=== PATIENT | female | born 1955 | race Caucasian/White ===

== ENCOUNTER 2017-12-02 11:04 | Emergency (ER) | payer BC, MEDICARE ==
[~2017-12-02] VITALS: Ht 154.9 cm; Wt 75.7 kg
[~2017-12-02 11:04] MED LIST: ATO40T PO; CHOL20007 PO; FERR-20 PO; GABA300C10 PO; INSUINJ18 SC; INSUINJ37 SC; MYCO500T PO; ONDA4TAB5 PO; PYRI60TA3 PO; TRAM50TA2 PO; VALS160T51 PO
[2017-12-02 11:30] VITALS: BP 143/66
== END 2017-12-02 14:21 | disposition home or self-care (01) ==
LOC: ER 11:04
DX: M70.51 Other bursitis of knee, right knee (principal); I10 Essential (primary) hypertension; E11.9 Type 2 diabetes mellitus without complications; E07.9 Disorder of thyroid, unspecified; Z88.8 Allergy status to other drugs, medicaments and biological substances; Z79.4 Long term (current) use of insulin; Z88.1 Allergy status to other antibiotic agents
CPT/HCPCS: 29505; 73562

== ENCOUNTER 2018-02-26 01:45 | Inpatient (IN) | payer BC ==
[~2018-02-26] VITALS: Ht 157.5 cm; Wt 71.2 kg
[2018-02-26] MEDS ORDERED: SODIUM CHLORIDE 0.9% 2,000 ML IV ONE (02:30)
[2018-02-26] MEDS ORDERED: InsuLIN REG 1unit/0.01ml Soln (100units/ml) IV ONE ×3 (02:30→09:15)
[2018-02-26 02:36] LABS: Basophils # (auto) 0.1 uL; Basophils % (auto) 0.5 % (0.0-2.0); Eosinophils # (auto) 0 uL; Lymphocytes # (auto) 0.9 uL; Lymphocytes % (auto) 5.5 % (10.0-50.0); Mean Corpuscular Hemoglobin 29.8 pg (28.0-32.0); Mean Corpuscular Hgb Conc. 31.8 g/dL (32.0-36.0); Mean Corpuscular Volume 93.7 fL (80.0-100.0); Monocytes # (auto) 1.1 uL; Monocytes % (auto) 6.2 % (0.0-12.0); Neutrophils # (auto) 15.1 uL; Neutrophils % (auto) 87.8 % (37.0-80.0); Platelet Count (auto) 420 10^3/uL (140-450); Red Blood Cells 4.69 10^6/uL (4.0-5.20); Red Cell Distribution Width 14.9 % (11.8-14.3); White Blood Cell 17.2 10^3/uL (4.4-10.8)
[2018-02-26 02:55] LABS: Albumin 4.5 g/dL (3.4-5.0); Calcium 9.9 mg/dL (8.5-10.1); Magnesium 1.9 mg/dL (1.6-2.6); Potassium 4.5 mmol/L (3.5-5.1)
[2018-02-26 02:59] LABS: BUN/Creatinine Ratio 15.3; Bilirubin, Total 0.6 mg/dL (0.2-1.0); Total Protein 8.6 g/dL (6.4-8.2)
[2018-02-26] MEDS ORDERED: POTASSIUM CHL 20 Meq TABLET PO ONE (04:00)
[2018-02-26 06:04] LABS: Urine Bacteria NONE SEEN /hpf (None Seen); Urine Blood Negative /uL (Negative); Urine Specific Gravity 1.027 (1.001-1.035); Urine WBC <1 /hpf (0 - 5)
[2018-02-26] MEDS ORDERED: ACETAMINOPHEN 500 MG TAB PO PRN (08:00)
[2018-02-26] MEDS ORDERED: HYDROcodone-ACET 5/325MG TAB PO PRN (08:00)
[2018-02-26] MEDS ORDERED: InsuLIN R (HUMAN) 100 UNITS in SODIUM CHL 0.9% 99 ML IV SCH (08:04)
[2018-02-26 08:10] LABS: Basophils # (auto) 0 uL; Basophils % (auto) 0.2 % (0.0-2.0); Eosinophils # (auto) 0 uL; Hematocrit 41.1 % (36.0-46.0); Hemoglobin 13.2 g/dL (12.2-16.2); Lymphocytes # (auto) 1.1 uL; Mean Corpuscular Hemoglobin 29.5 pg (28.0-32.0); Mean Corpuscular Hgb Conc. 32.1 g/dL (32.0-36.0); Mean Corpuscular Volume 91.8 fL (80.0-100.0); Monocytes # (auto) 1.7 uL; Monocytes % (auto) 9.3 % (0.0-12.0); Neutrophils # (auto) 15.6 uL; Neutrophils % (auto) 84.5 % (37.0-80.0); Platelet Count (auto) 364 10^3/uL (140-450); Red Blood Cells 4.48 10^6/uL (4.0-5.20); Red Cell Distribution Width 14.5 % (11.8-14.3); White Blood Cell 18.5 10^3/uL (4.4-10.8)
[2018-02-26] MEDS ORDERED: DEXTROSE (50%) 50ML SYRG IV PRN ×2 (08:15→09:15)
[2018-02-26] MEDS ORDERED: MORPHINE SULFATE 8mg/ml INJ SDV IV PRN (08:15)
[2018-02-26] MEDS: ONDANSETRON HCL 4 MG/2 ML VIAL IV PRN (08:24)
[2018-02-26 08:25] LABS: BUN/Creatinine Ratio 20.8; Potassium 4.7 mmol/L (3.5-5.1)
[2018-02-26] MEDS ORDERED: ACCU-CHEK COMFORT CURVE STRIP VI SCH (09:00)
[2018-02-26] MEDS ORDERED: INSULIN NPH Isophane (HUMAN) 1unit/0.01ml Susp(100units/ml) SC ONE (09:15)
[2018-02-26] MEDS ORDERED: SODIUM CHLORIDE 0.9% 1,000 ML IV ONE (10:00)
[2018-02-26] MEDS: VALSARTAN 80 MG TAB PO SCH (10:29)
[2018-02-26 11:34] LABS: Phosphorus 2.2 mg/dL (2.5-4.90)
[2018-02-26] MEDS: InsuLIN REG 1unit/0.01ml Soln (100units/ml) SC SCH ×3 (12:38→20:55)
[2018-02-26] MEDS: ACCU-CHEK COMFORT CURVE STRIP VI SCH ×3 (12:39→20:00)
[2018-02-26] MEDS ORDERED: INSULIN LANTUS (GLARGINE) 1 /0.01ml (100units/ml) SC ONE (13:30)
[2018-02-26] MEDS: SODIUM CHLORIDE 0.9% 1,000 ML IV SCH (13:30)
[2018-02-26] MEDS: GABAPENTIN 300 MG CAP PO SCH ×2 (14:00→22:02)
[2018-02-26] MEDS ORDERED: SODIUM CHLORIDE 0.9% 1,000 ML IV SCH (14:04)
[2018-02-26] MEDS: MYCOPHENOLATE 500 MG TAB PO SCH ×2 (14:33→22:04)
[2018-02-26 16:20] LABS: BUN/Creatinine Ratio 23.1; Calcium 8.8 mg/dL (8.5-10.1); Potassium 4.2 mmol/L (3.5-5.1)
[2018-02-26 17:11] VITALS: BP 133/65
[2018-02-26] MEDS: INSULIN NPH Isophane (HUMAN) 1unit/0.01ml Susp(100units/ml) SC SCH (18:00)
[2018-02-26] MEDS: PYRIDOSTIGMINE BROMIDE 60 MG TAB PO SCH ×2 (18:00→22:04)
[2018-02-26] MEDS ORDERED: PNEUMOCOCCAL VACC POLYS 25 MCG/0.5 ML VIAL IM ONE (18:00)
[2018-02-26 20:00] VITALS: BP 146/88
[2018-02-26 21:42] LABS: BUN/Creatinine Ratio 20.3; Calcium 8.5 mg/dL (8.5-10.1); Potassium 4.2 mmol/L (3.5-5.1)
[2018-02-26 22:00] VITALS: BP 146/70
[2018-02-26] MEDS: ATORVASTATIN 20 MG TAB PO SCH (22:02)
[2018-02-27] VITALS (7 sets, daily range): BP systolic 127–160; BP diastolic 62–89
[2018-02-27] MEDS: SODIUM CHLORIDE 0.9% 1,000 ML IV SCH (02:53)
[2018-02-27] MEDS: ACCU-CHEK COMFORT CURVE STRIP VI SCH ×5 (04:00→22:00)
[2018-02-27] MEDS: InsuLIN REG 1unit/0.01ml Soln (100units/ml) SC SCH ×4 (05:00→17:50)
[2018-02-27 06:03] LABS: Basophils # (auto) 0.1 uL; Basophils % (auto) 0.7 % (0.0-2.0); Eosinophils # (auto) 0.1 uL; Eosinophils % (auto) 0.7 % (0.0-7.0); Hematocrit 37.3 % (36.0-46.0); Hemoglobin 12.4 g/dL (12.2-16.2); Lymphocytes # (auto) 1.6 uL; Lymphocytes % (auto) 15.2 % (10.0-50.0); Mean Corpuscular Hemoglobin 30.4 pg (28.0-32.0); Mean Corpuscular Hgb Conc. 33.1 g/dL (32.0-36.0); Mean Corpuscular Volume 91.7 fL (80.0-100.0); Monocytes # (auto) 1.1 uL; Neutrophils # (auto) 7.9 uL; Neutrophils % (auto) 73.4 % (37.0-80.0); Platelet Count (auto) 261 10^3/uL (140-450); Red Blood Cells 4.06 10^6/uL (4.0-5.20); Red Cell Distribution Width 14.6 % (11.8-14.3); White Blood Cell 10.8 10^3/uL (4.4-10.8)
[2018-02-27 06:27] LABS: Albumin 3.4 g/dL (3.4-5.0); Bilirubin, Total 0.5 mg/dL (0.2-1.0); Calcium 8.7 mg/dL (8.5-10.1); Phosphorus 1.9 mg/dL (2.5-4.90); Total Protein 6.3 g/dL (6.4-8.2)
[2018-02-27] MEDS: PYRIDOSTIGMINE BROMIDE 60 MG TAB PO SCH ×4 (06:45→22:34)
[2018-02-27] MEDS: GABAPENTIN 300 MG CAP PO SCH ×3 (06:45→22:41)
[2018-02-27] MEDS: INSULIN NPH Isophane (HUMAN) 1unit/0.01ml Susp(100units/ml) SC SCH (06:46)
[2018-02-27] MEDS ORDERED: DEXTROSE (50%) 50ML SYRG IV PRN (09:15)
[2018-02-27] MEDS: ONDANSETRON HCL 4 MG/2 ML VIAL IV PRN ×3 (09:28→20:26)
[2018-02-27] MEDS: VALSARTAN 80 MG TAB PO SCH (09:29)
[2018-02-27] MEDS: PANTOPRAZOLE 40 MG TAB PO SCH (09:33)
[2018-02-27] MEDS: MYCOPHENOLATE 500 MG TAB PO SCH ×2 (10:14→22:35)
[2018-02-27] MEDS: INSULIN LANTUS (GLARGINE) 1 /0.01ml (100units/ml) SC SCH (12:14)
[2018-02-27] MEDS: NEUTRA-PHOS TABLET PO SCH ×2 (12:14→17:50)
[2018-02-27] MEDS ORDERED: InsuLIN REG 1unit/0.01ml Soln (100units/ml) SC SCH (22:00)
[2018-02-27] MEDS: ATORVASTATIN 20 MG TAB PO SCH (22:41)
[2018-02-28 05:00] VITALS: BP 136/63
[2018-02-28] MEDS: PYRIDOSTIGMINE BROMIDE 60 MG TAB PO SCH ×2 (06:59→13:17)
[2018-02-28] MEDS: GABAPENTIN 300 MG CAP PO SCH (06:59)
[2018-02-28] MEDS: InsuLIN REG 1unit/0.01ml Soln (100units/ml) SC SCH ×2 (07:00→13:16)
[2018-02-28] MEDS: ACCU-CHEK COMFORT CURVE STRIP VI SCH ×2 (07:00→13:16)
[2018-02-28 09:00] VITALS: BP 143/84
[2018-02-28] MEDS: NEUTRA-PHOS TABLET PO SCH ×2 (09:35→13:17)
[2018-02-28] MEDS: PANTOPRAZOLE 40 MG TAB PO SCH (09:37)
[2018-02-28] MEDS: VALSARTAN 80 MG TAB PO SCH (09:50)
[2018-02-28] MEDS: MYCOPHENOLATE 500 MG TAB PO SCH (09:50)
[2018-02-28] MEDS: INSULIN LANTUS (GLARGINE) 1 /0.01ml (100units/ml) SC SCH (10:31)
[2018-02-28 13:00] VITALS: BP 149/89
== END 2018-02-28 13:30 | disposition home or self-care (01) | DRG 637 ==
LOC: ER 01:45 → OVERFLOW 01:46 → TELE-CENTR 15:00 → CENTRAL 02-27 11:00
PROVIDERS: ADMIT Nurse Practitioner Family; ATTEND Internal Medicine
DX: E11.10 Type 2 diabetes mellitus with ketoacidosis without coma (principal); N17.0 Acute kidney failure with tubular necrosis; K52.9 Noninfective gastroenteritis and colitis, unspecified; G70.00 Myasthenia gravis without (acute) exacerbation; E83.39 Other disorders of phosphorus metabolism; E86.0 Dehydration; I10 Essential (primary) hypertension; E78.5 Hyperlipidemia, unspecified; Z79.899 Other long term (current) drug therapy; Z79.4 Long term (current) use of insulin; Z88.1 Allergy status to other antibiotic agents; Z88.8 Allergy status to other drugs, medicaments and biological substances
CPT/HCPCS: 36415; 36600; 71045; 80048; 80053; 81001; 82010; 82805; 82962; 83036; 83735; 84100; 84484; 85025; 96361; 96372; 96374; 96375; 96376; J1815; J2405; J7517

== ENCOUNTER → 2018-06-08 | Emergency (ER) | payer BC | END | disposition left against medical advice (07) | LOC: ER 19:35 | DX: Z76.0 Encounter for issue of repeat prescription (principal); Z53.21 Procedure and treatment not carried out due to patient leaving prior to being seen by health care provider ==

== ENCOUNTER 2018-06-22 14:40 | Emergency (ER) | payer BC ==
[~2018-06-22] VITALS: Ht 157.5 cm; Wt 70.3 kg
[2018-06-22 15:09] VITALS: BP 157/104
== END 2018-06-22 17:22 | disposition home or self-care (01) ==
LOC: ER 14:40
DX: E78.5 Hyperlipidemia, unspecified (principal); E11.9 Type 2 diabetes mellitus without complications; I10 Essential (primary) hypertension; Z76.0 Encounter for issue of repeat prescription; E07.9 Disorder of thyroid, unspecified; Z88.1 Allergy status to other antibiotic agents; Z88.8 Allergy status to other drugs, medicaments and biological substances; Z79.899 Other long term (current) drug therapy; Z79.4 Long term (current) use of insulin

== ENCOUNTER 2021-07-05 03:27 | Inpatient (IN) | payer BC, OTHER ==
[~2021-07-05] VITALS: Ht 152.4 cm; Wt 71.1 kg
[~2021-07-05 03:27] MED LIST changes: +ONDA-144 PO; -ONDA4TAB5 PO; +VALS160T4 PO; -VALS160T51 PO
[2021-07-05 03:57] LABS: Basophils # (auto) 0.2 10 ^3/uL (0-0.2); Basophils % (auto) 0.8 % (0.0-2.0); Eosinophils # (auto) 0 10 ^3/uL (0-0.8); Monocytes # (auto) 0.4 10 ^3/uL (0-1.3); Monocytes % (auto) 2.3 % (0.0-12.0)
[2021-07-05 04:01] LABS: Hematocrit 46.2 % (36.0-46.0); Hemoglobin 14.8 g/dL (12.2-16.2); Lymphocytes # (auto) 0.8 10 ^3/uL (0.4-5.4); Lymphocytes % (auto) 4.6 % (10.0-50.0); Mean Corpuscular Hemoglobin 30.2 pg (28.0-32.0); Mean Corpuscular Hgb Conc. 32.1 g/dL (32.0-36.0); Mean Corpuscular Volume 94.3 fL (80.0-100.0); Neutrophils # (auto) 16.7 10 ^3/uL (1.6-8.6); Neutrophils % (auto) 92.3 % (37.0-80.0); Nucleated Red Blood Cells % 0.1 %; White Blood Cell 18.1 10^3/uL (4.4-10.8)
[2021-07-05 04:15] LABS: Albumin 4.3 g/dL (3.4-5.0); Calcium 9.5 mg/dL (8.5-10.1); Potassium 4.2 mmol/L (3.5-5.1)
[2021-07-05 04:19] LABS: BUN/Creatinine Ratio 16.6
[2021-07-05 04:24] LABS: Bilirubin, Total 0.5 mg/dL (0.2-1.0)
[2021-07-05] MEDS ORDERED: SODIUM CHLORIDE 0.9% 1,000 ML IV ONE ×2 (04:30→04:45)
[2021-07-05] MEDS ORDERED: DEXTROSE (50%) 50ML SYRG IV PRN (04:45)
[2021-07-05] MEDS ORDERED: INSULIN LANTUS (GLARGINE) 1 /0.01ml (100units/ml) SC ONE ×3 (04:45→14:30)
[2021-07-05] MEDS ORDERED: InsuLIN REG 1unit/0.01ml Soln (100units/ml) ONE (04:46)
[2021-07-05] MEDS: InsuLIN R (HUMAN) 100 UNITS in SODIUM CHL 0.9% 99 ML IV SCH ×2 (04:54→06:00)
[2021-07-05 05:46] LABS: Urine WBC None Seen /hpf (0 - 5)
[2021-07-05] MEDS: ACCU-CHEK COMFORT CURVE STRIP VI SCH ×6 (06:00→13:41)
[2021-07-05] MEDS ORDERED: NITROGLYCERIN 0.4 MG SL TAB SL PRN (06:15)
[2021-07-05] MEDS ORDERED: MORPHINE SULFATE INJECTION 2 MG/ML SYRG IV PRN (06:15)
[2021-07-05] MEDS ORDERED: ONDANSETRON HCL 4 MG/2 ML VIAL IV PRN (06:15)
[2021-07-05 06:23] LABS: Urine Bacteria NONE SEEN /hpf (None Seen); Urine Blood Negative /uL (Negative); Urine Specific Gravity 1.022 (1.001-1.035)
[2021-07-05 06:48] LABS: Basophils # (auto) 0.1 10 ^3/uL (0-0.2); Basophils % (auto) 0.4 % (0.0-2.0); Eosinophils # (auto) 0 10 ^3/uL (0-0.8); Hematocrit 44.2 % (36.0-46.0); Hemoglobin 14.5 g/dL (12.2-16.2); Lymphocytes # (auto) 0.7 10 ^3/uL (0.4-5.4); Mean Corpuscular Hemoglobin 30.5 pg (28.0-32.0); Mean Corpuscular Hgb Conc. 32.9 g/dL (32.0-36.0); Mean Corpuscular Volume 92.9 fL (80.0-100.0); Monocytes # (auto) 0.6 10 ^3/uL (0-1.3); Monocytes % (auto) 3.5 % (0.0-12.0); Neutrophils # (auto) 16.3 10 ^3/uL (1.6-8.6); Neutrophils % (auto) 92.1 % (37.0-80.0); Nucleated Red Blood Cells % 0.1 %; Red Blood Cells 4.76 10^6/uL (4.0-5.20); Red Cell Distribution Width 13.7 % (11.8-14.3); White Blood Cell 17.7 10^3/uL (4.4-10.8)
[2021-07-05 07:23] LABS: Alanine Aminotransferase 22 U/L (13-56); Albumin 3.9 g/dL (3.4-5.0); Anion Gap 20 (5-15); Aspartate Aminotransferase 21 U/L (15-37); BUN/Creatinine Ratio 19.2; Blood Urea Nitrogen 23 mg/dL (7-18); Carbon Dioxide 10 mmol/L (21-32); Chloride 105 mmol/L (98-107); GFR African American 58 mL/min; GFR Non-African American 48 mL/min; Sodium 135 mmol/L (136-145)
[2021-07-05 07:26] LABS: Alkaline Phosphatase 138 U/L (45-117); Bilirubin, Total 0.5 mg/dL (0.2-1.0); Total Protein 8.4 g/dL (6.4-8.2)
[2021-07-05 07:31] LABS: Glucose 422 mg/dL (74-106)
[2021-07-05] MEDS ORDERED: INSULIN LANTUS (GLARGINE) 1 /0.01ml (100units/ml) SC SCH (10:00)
[2021-07-05] MEDS ORDERED: dilTIAZem 25 MG/5 ML VIAL IV PRN (11:00)
[2021-07-05] MEDS: CIPROFLOXACIN 400MG/200ML 200 ML IV SCH ×2 (11:08→21:41)
[2021-07-05] MEDS: VALSARTAN 80 MG TAB PO SCH (11:09)
[2021-07-05] MEDS: MYCOPHENOLATE 500 MG TAB PO SCH ×2 (11:20→21:42)
[2021-07-05] MEDS: PYRIDOSTIGMINE BROMIDE 60 MG TAB PO SCH ×3 (12:35→21:42)
[2021-07-05 13:42] LABS: BUN/Creatinine Ratio 24.4; Calcium 8.8 mg/dL (8.5-10.1); Potassium 3.8 mmol/L (3.5-5.1)
[2021-07-05] MEDS ORDERED: SODIUM BICARBONATE 8.4 % INJ 50ML VIAL IV ONE (14:30)
[2021-07-05] MEDS: GABAPENTIN 300 MG CAP PO SCH ×2 (15:11→21:42)
[2021-07-05] MEDS: LACTATED RINGER'S 1,000 ML IV SCH (15:11)
[2021-07-05] MEDS: traMADol HCL 50 MG TAB PO SCH ×2 (15:11→21:45)
[2021-07-05 19:49] LABS: BUN/Creatinine Ratio 23.5; Calcium 8.7 mg/dL (8.5-10.1); Potassium 3.7 mmol/L (3.5-5.1)
[2021-07-05] MEDS ORDERED: ATORVASTATIN 20 MG TAB PO SCH (22:00)
[2021-07-06] VITALS (8 sets, daily range): BP systolic 143–159; BP diastolic 63–87
[2021-07-06] MEDS: LACTATED RINGER'S 1,000 ML IV SCH ×2 (00:30→10:02)
[2021-07-06 05:54] LABS: Basophils # (auto) 0 10 ^3/uL (0-0.2); Basophils % (auto) 0.3 % (0.0-2.0); Eosinophils # (auto) 0.1 10 ^3/uL (0-0.8); Eosinophils % (auto) 0.9 % (0.0-7.0); Hematocrit 38.6 % (36.0-46.0); Hemoglobin 12.8 g/dL (12.2-16.2); Lymphocytes # (auto) 1.9 10 ^3/uL (0.4-5.4); Lymphocytes % (auto) 12.7 % (10.0-50.0); Mean Corpuscular Hemoglobin 30.5 pg (28.0-32.0); Mean Corpuscular Hgb Conc. 33.2 g/dL (32.0-36.0); Mean Corpuscular Volume 91.8 fL (80.0-100.0); Monocytes % (auto) 6.6 % (0.0-12.0); Neutrophils # (auto) 12.1 10 ^3/uL (1.6-8.6); Neutrophils % (auto) 79.5 % (37.0-80.0); Nucleated Red Blood Cells % 0.1 %; Red Cell Distribution Width 14.2 % (11.8-14.3); White Blood Cell 15.2 10^3/uL (4.4-10.8)
[2021-07-06] MEDS: PYRIDOSTIGMINE BROMIDE 60 MG TAB PO SCH ×3 (06:00→17:16)
[2021-07-06 06:16] LABS: Chloride 103 mmol/L (98-107); Potassium 3.7 mmol/L (3.5-5.1); Sodium 133 mmol/L (136-145)
[2021-07-06 06:27] LABS: Anion Gap 13 (5-15); BUN/Creatinine Ratio 19.5; Blood Urea Nitrogen 15 mg/dL (7-18); Calcium 8.7 mg/dL (8.5-10.1); Carbon Dioxide 17 mmol/L (21-32); GFR African American 96 mL/min; GFR Non-African American 80 mL/min; Glucose 236 mg/dL (74-106)
[2021-07-06] MEDS ORDERED: DEXTROSE (50%) 50ML SYRG IV PRN (06:45)
[2021-07-06] MEDS: GABAPENTIN 300 MG CAP PO SCH ×2 (06:45→12:10)
[2021-07-06] MEDS: traMADol HCL 50 MG TAB PO SCH ×2 (06:45→12:11)
[2021-07-06] MEDS: InsuLIN REG 1unit/0.01ml Soln (100units/ml) SC SCH ×3 (07:14→17:00)
[2021-07-06] MEDS: ACCU-CHEK COMFORT CURVE STRIP VI SCH ×3 (07:15→17:00)
[2021-07-06] MEDS ORDERED: LACTATED RINGER'S 1,000 ML IV ONE (08:15)
[2021-07-06] MEDS ORDERED: SODIUM BICARBONATE 8.4 % INJ 50ML VIAL IV ONE (09:00)
[2021-07-06] MEDS: VALSARTAN 80 MG TAB PO SCH (09:58)
[2021-07-06] MEDS: MYCOPHENOLATE 500 MG TAB PO SCH (09:59)
[2021-07-06] MEDS: CIPROFLOXACIN 400MG/200ML 200 ML IV SCH (09:59)
[2021-07-06] MEDS ORDERED: amLODIPine BESYLATE 5 MG TAB PO SCH (10:00)
[2021-07-06] MEDS ORDERED: INSULIN LANTUS (GLARGINE) 1 /0.01ml (100units/ml) SC SCH ×3 (10:00)
== END 2021-07-06 17:25 | disposition home or self-care (01) | DRG 638 ==
LOC: ER 03:27 → TELE 06:04 → OBSVTOIN 06:04 → INTOOBSV 06:04 → CENTRAL 20:30
PROVIDERS: ADMIT Internal Medicine; ATTEND Internal Medicine
DX: E11.10 Type 2 diabetes mellitus with ketoacidosis without coma (principal); N17.9 Acute kidney failure, unspecified; I10 Essential (primary) hypertension; G70.00 Myasthenia gravis without (acute) exacerbation; D72.829 Elevated white blood cell count, unspecified; Z20.822 Contact with and (suspected) exposure to COVID-19; E78.5 Hyperlipidemia, unspecified; Z79.899 Other long term (current) drug therapy; Z81.1 Family history of alcohol abuse and dependence; Z88.8 Allergy status to other drugs, medicaments and biological substances
CPT/HCPCS: 36415; 71045; 76705; 80048; 80053; 81001; 82010; 82962; 83036; 83690; 84484; 85025; 87081; 87426; 96361; 96372; 96374; G0378; J1815; J2405; J7517

== ENCOUNTER 2022-11-20 06:21 | Inpatient (IN) | payer OTHER ==
[~2022-11-20] VITALS: Ht 157.5 cm; Wt 86.5 kg
[2022-11-20] VITALS (33 sets, daily range): BP systolic 75–143; BP diastolic 37–83
[2022-11-20] MEDS ORDERED: MAGNESIUM SULFATE 1GM/100ML 200 ML IV ONE (06:29)
[2022-11-20] MEDS ORDERED: EPINEPHrine HCL 250 ML IV ONE (06:35)
[2022-11-20] MEDS ORDERED: DOPamine 1600MCG/ML D5W 0 ML IV ONE (06:41)
[2022-11-20] MEDS: DOPamine 1600MCG/ML D5W 250 ML IV SCH (06:44)
[2022-11-20] MEDS: EPINEPHrine HCL 250 ML IV SCH (06:48)
[2022-11-20] MEDS ORDERED: IOHEXOL 300 MG/ML 100ML BOTTLE IJ ONE (07:42)
[2022-11-20] MEDS ORDERED: NOREPINEPHRINE 8 MG/250ML KIT 250 ML IV ONE (07:52)
[2022-11-20 08:02] LABS: Albumin 2.9 g/dL (3.4-5.0); BUN/Creatinine Ratio 11.8; Potassium 3.7 mmol/L (3.5-5.1)
[2022-11-20 08:13] LABS: Bilirubin, Total 0.2 mg/dL (0.2-1.0); Total Protein 5.4 g/dL (6.4-8.2)
[2022-11-20 08:15] LABS: Lactic Acid w/Reflex 18.3 mmol/L (0.4-2.0)
[2022-11-20] MEDS ORDERED: HYDROCORTISONE SOD SUCC 100 MG/2ML INJ VIAL IV ONE ×2 (08:15→09:00)
[2022-11-20] MEDS: NOREPINEPHRINE 8 MG/250ML KIT 250 ML IV SCH (08:15)
[2022-11-20 08:20] LABS: Calcium 14.2 mg/dL (8.5-10.1)
[2022-11-20 08:22] LABS: Hemoglobin 9.4 g/dL (12.2-16.2); White Blood Cell 6.3 10^3/uL (4.4-10.8)
[2022-11-20 08:24] LABS: Hematocrit 34.2 % (36.0-46.0); Mean Corpuscular Hemoglobin 25.6 pg (28.0-32.0); Mean Corpuscular Hgb Conc. 27.5 g/dL (32.0-36.0); Red Blood Cells 3.68 10^6/uL (4.0-5.20); Red Cell Distribution Width 19.8 % (11.8-14.3)
[2022-11-20] MEDS ORDERED: SODIUM BICARBONATE 8.4 % INJ 50ML VIAL IV ONE ×2 (08:30→09:00)
[2022-11-20 08:31] LABS: Basophils % (manual) 0 (0.0-2.0); Blast Cells 0; Metamyelocytes % 0; Promyelocytes % 0; Reactive Lymphocytes 0
[2022-11-20 08:55] LABS: Band Neutrophils % (manual) 5; Eosinophils % (manual) 2 (0-7); Lymphocytes % (manual) 69 (10.0-50.0); Monocytes % (manual) 2 (0-12); Myelocytes % 1
[2022-11-20] MEDS ORDERED: SODIUM CHLORIDE 0.9% 1,000 ML IV ONE (09:00)
[2022-11-20] MEDS ORDERED: MIDAZOLAM DRIP 50 mg/50mL 50 ML IV ONE (10:17)
[2022-11-20] MEDS ORDERED: DOPamine 1600MCG/ML D5W 250 ML IV ONE (10:39)
[2022-11-20] MEDS: MIDAZOLAM DRIP 50 mg/50mL 50 ML IV SCH ×3 (10:40→23:50)
[2022-11-20] MEDS ORDERED: MORPHINE SULFATE INJ 2 MG/ml SYRG IV PRN ×2 (15:00)
[2022-11-20] MEDS ORDERED: DEXTROSE (50%) 50ML SYRG IV PRN (15:45)
[2022-11-20] MEDS: SODIUM CHLORIDE 0.9% 1,000 ML IV SCH ×2 (16:01→23:20)
[2022-11-20] MEDS: ACCU-CHEK COMFORT CURVE STRIP VI SCH (18:22)
[2022-11-20] MEDS: InsuLIN REG 1unit/0.01ml Soln (100units/ml) SC SCH (18:30)
[2022-11-20] MEDS ORDERED: INSULIN LANTUS (GLARGINE) 1 /0.01ml (100units/ml) SC ONE (18:30)
[2022-11-20 21:30] LABS: BUN/Creatinine Ratio 15.3; Calcium 9.3 mg/dL (8.5-10.1); Magnesium 2.3 mg/dL (1.6-2.6)
[2022-11-20] MEDS ORDERED: MYCOPHENOLATE 500 MG TAB PO SCH (22:00)
[2022-11-20] MEDS ORDERED: MYCOPHENOLATE 1000mg/5ml ORALsusp 200mg/ml GT ONE (22:00)
[2022-11-20 22:10] LABS: Potassium 2.8 mmol/L (3.5-5.1)
[2022-11-20] MEDS: PROPOFOL 100 ML IV SCH (22:15)
[2022-11-20] MEDS: POTASSIUM CHL 20MEQ/100ML 100 ML IV SCH (23:51)
[2022-11-21] VITALS (79 sets, daily range): BP systolic 9–152; BP diastolic 36–78
[2022-11-21] MEDS: ACCU-CHEK COMFORT CURVE STRIP VI SCH ×5 (00:25→23:35)
[2022-11-21] MEDS: InsuLIN REG 1unit/0.01ml Soln (100units/ml) SC SCH ×5 (00:27→23:35)
[2022-11-21] MEDS: POTASSIUM CHL 20MEQ/100ML 100 ML IV SCH ×3 (01:57→06:00)
[2022-11-21] MEDS: MIDAZOLAM DRIP 50 mg/50mL 50 ML IV SCH ×6 (03:19→21:53)
[2022-11-21 03:46] LABS: Basophils # (auto) 0.1 10 ^3/uL (0-0.2); Eosinophils # (auto) 0 10 ^3/uL (0-0.8); Eosinophils % (auto) 0.1 % (0.0-7.0); Red Cell Distribution Width 18.9 % (11.8-14.3); White Blood Cell 13.9 10^3/uL (4.4-10.8)
[2022-11-21 03:47] LABS: Basophils % (auto) 0.4 % (0.0-2.0); Hematocrit 35.1 % (36.0-46.0); Lymphocytes # (auto) 0.5 10 ^3/uL (0.4-5.4); Lymphocytes % (auto) 3.4 % (10.0-50.0); Mean Corpuscular Hemoglobin 25.1 pg (28.0-32.0); Mean Corpuscular Hgb Conc. 31.2 g/dL (32.0-36.0); Mean Corpuscular Volume 80.5 fL (80.0-100.0); Monocytes # (auto) 0.5 10 ^3/uL (0-1.3); Monocytes % (auto) 3.4 % (0.0-12.0); Neutrophils # (auto) 12.9 10 ^3/uL (1.6-8.6); Neutrophils % (auto) 92.7 % (37.0-80.0); Red Blood Cells 4.36 10^6/uL (4.0-5.20)
[2022-11-21 04:16] LABS: Albumin 2.8 g/dL (3.4-5.0); Anion Gap 11 (5-15); Blood Urea Nitrogen 38 mg/dL (7-18); Calcium 8.6 mg/dL (8.5-10.1); Carbon Dioxide 22 mmol/L (21-32); Chloride 109 mmol/L (98-107); Glucose 374 mg/dL (74-106); Potassium 3.8 mmol/L (3.5-5.1); Sodium 142 mmol/L (136-145)
[2022-11-21 04:20] LABS: Alanine Aminotransferase 161 U/L (13-56); Alkaline Phosphatase 182 U/L (45-117); Aspartate Aminotransferase 291 U/L (15-37); BUN/Creatinine Ratio 17.3; Bilirubin, Total 0.3 mg/dL (0.2-1.0); GFR African American 29 mL/min; GFR Non-African American 24 mL/min; Total Protein 5.2 g/dL (6.4-8.2)
[2022-11-21] MEDS: EPINEPHrine HCL 250 ML IV SCH ×2 (07:02→19:30)
[2022-11-21] MEDS: DOPamine 1600MCG/ML D5W 250 ML IV SCH ×2 (07:32→16:06)
[2022-11-21] MEDS: NOREPINEPHRINE 8 MG/250ML KIT 250 ML IV SCH ×4 (08:30→22:39)
[2022-11-21] MEDS ORDERED: MYCOPHENOLATE 1000mg/5ml ORALsusp 200mg/ml GT SCH (10:00)
[2022-11-21] MEDS ORDERED: levoFLOXacin 750MG 150 ML IV SCH (10:00)
[2022-11-21] MEDS ORDERED: INSULIN LANTUS (GLARGINE) 1 /0.01ml (100units/ml) SC SCH (10:00)
[2022-11-21] MEDS ORDERED: cefTRIAXone 1GM/50ML D5W 50 ML IV SCH (10:00)
[2022-11-21] MEDS: SODIUM CHLORIDE 0.9% 1,000 ML IV SCH (10:31)
[2022-11-21] MEDS: ENOXAPARIN SOD 40 MG/0.4 ML SYRINGE SC SCH (10:36)
[2022-11-21] MEDS ORDERED: SODIUM CHLORIDE 0.9% 1,000 ML IV SCH (12:30)
[2022-11-21] MEDS ORDERED: PHENYLEPHRINE IV 250 ML IV ONE (15:55)
[2022-11-21] MEDS ORDERED: PHENYLEPHRINE IV 250 ML IV SCH (16:00)
[2022-11-21] MEDS: PHENYLEPHRINE INJ 80 MG in SODIUM CHL 0.9% 242 ML IV SCH (16:28)
[2022-11-21 16:30] LABS: Cholesterol 108 mg/dL (< 200); HDL Cholesterol 83 mg/dL (40-59); LDL Cholesterol 15 mg/dL (< 100); Triglycerides 118 mg/dL (< 150)
[2022-11-21 16:44] LABS: Amphetamine Screen, Urine NEGATIVE (NEGATIVE); Barbiturate Scree,Urine NEGATIVE (NEGATIVE); Benzodiazephine Screen, Urine POSITIVE (NEGATIVE); Cannabinoid Screen, Urine POSITIVE (NEGATIVE); Cocaine Screen, Urine NEGATIVE (NEGATIVE); Opiate Scree,Urine NEGATIVE (NEGATIVE); Phencyclidine Screen, Urine NEGATIVE (NEGATIVE)
[2022-11-21 16:56] LABS: Lactic Acid w/Reflex 5.8 mmol/L (0.4-2.0)
[2022-11-21] MEDS: PIPERACILLIN-TAZOB 3.375GM 50 ML IV SCH (17:08)
[2022-11-21 17:19] LABS: Urine Amorphous Crystal FEW /hpf (None Seen); Urine Bacteria FEW /hpf (None Seen); Urine Blood 2+ /uL (Negative); Urine Specific Gravity 1.042 (1.001-1.035); Urine WBC 3 /hpf (0 - 5)
[2022-11-21] MEDS: PYRIDOstigmine BROMIDE 60 MG TAB PO SCH (18:00)
[2022-11-21] MEDS: VASOPRESSIN 20 UNITS in SODIUM CHL 0.9% 99 ML IV SCH (18:42)
[2022-11-21] MEDS: PROPOFOL 100 ML IV SCH (20:07)
[2022-11-21] MEDS ORDERED: ATORVASTATIN 20 MG TAB PO SCH (22:00)
[2022-11-22] VITALS (83 sets, daily range): BP systolic 81–198; BP diastolic 18–92
[2022-11-22] MEDS: PHENYLEPHRINE INJ 80 MG in SODIUM CHL 0.9% 242 ML IV SCH ×3 (02:23→19:44)
[2022-11-22] MEDS: MIDAZOLAM DRIP 50 mg/50mL 50 ML IV SCH (02:23)
[2022-11-22] MEDS: VASOPRESSIN 20 UNITS in SODIUM CHL 0.9% 99 ML IV SCH ×2 (02:24→15:16)
[2022-11-22] MEDS ORDERED: D5W/SOD CHL 0.45% 1,000 ML IV SCH (03:00)
[2022-11-22] MEDS: ACCU-CHEK COMFORT CURVE STRIP VI SCH ×11 (04:00→23:19)
[2022-11-22] MEDS: InsuLIN REG 1unit/0.01ml Soln (100units/ml) SC SCH ×4 (04:00→14:00)
[2022-11-22] MEDS: NOREPINEPHRINE 8 MG/250ML KIT 250 ML IV SCH ×4 (04:20→19:44)
[2022-11-22] MEDS: PIPERACILLIN-TAZOB 3.375GM 50 ML IV SCH (04:22)
[2022-11-22 04:53] LABS: Hemoglobin 10.1 g/dL (12.2-16.2)
[2022-11-22 04:55] LABS: Hematocrit 31.7 % (36.0-46.0); Mean Corpuscular Hemoglobin 25.8 pg (28.0-32.0); Mean Corpuscular Hgb Conc. 31.8 g/dL (32.0-36.0); Mean Corpuscular Volume 81.1 fL (80.0-100.0); Red Cell Distribution Width 18.6 % (11.8-14.3)
[2022-11-22 05:57] LABS: Basophils % (manual) 0 (0.0-2.0); Blast Cells 0; Myelocytes % 0; Promyelocytes % 0; Reactive Lymphocytes 0
[2022-11-22 06:32] LABS: Calcium 7.5 mg/dL (8.5-10.1); Chloride 113 mmol/L (98-107); Sodium 140 mmol/L (136-145)
[2022-11-22 06:35] LABS: Alanine Aminotransferase 414 U/L (13-56); Albumin 2.1 g/dL (3.4-5.0); Anion Gap 7 (5-15); Aspartate Aminotransferase 657 U/L (15-37); BUN/Creatinine Ratio 20.7; Blood Urea Nitrogen 72 mg/dL (7-18); Carbon Dioxide 20 mmol/L (21-32); GFR African American 17 mL/min; GFR Non-African American 14 mL/min
[2022-11-22 06:38] LABS: Alkaline Phosphatase 236 U/L (45-117); Total Protein 5.6 g/dL (6.4-8.2)
[2022-11-22 06:53] LABS: Potassium 7.3 mmol/L (3.5-5.1)
[2022-11-22 06:54] LABS: Glucose 49 mg/dL (74-106)
[2022-11-22] MEDS ORDERED: ACCU-CHEK COMFORT CURVE STRIP VI SCH ×2 (08:00→12:00)
[2022-11-22] MEDS: DEXTROSE 10% 250 ML IV ONE ×2 (08:12→08:29)
[2022-11-22] MEDS ORDERED: SODIUM BICARBONATE 8.4 % INJ 50ML VIAL IV ONE ×3 (08:15→15:30)
[2022-11-22] MEDS ORDERED: DEXTROSE 10% 1,000 ML IV ONE (08:15)
[2022-11-22] MEDS: DOPamine 1600MCG/ML D5W 250 ML IV SCH (08:24)
[2022-11-22] MEDS ORDERED: CALCIUM GLUC 1,000mg/50ml-NS 50 ML IV ONE ×2 (08:45→13:00)
[2022-11-22 09:14] LABS: Band Neutrophils % (manual) 14; Eosinophils % (manual) 1 (0-7); Lymphocytes % (manual) 18 (10.0-50.0); Metamyelocytes % 4; Monocytes % (manual) 3 (0-12)
[2022-11-22] MEDS ORDERED: INSULIN LANTUS (GLARGINE) 1 /0.01ml (100units/ml) SC SCH (10:00)
[2022-11-22] MEDS ORDERED: levoFLOXacin 250MG 50 ML IV SCH (10:00)
[2022-11-22] MEDS: PANTOPRAZOLE 40 MG/10 ML VIAL INJ IV SCH (10:05)
[2022-11-22] MEDS: ENOXAPARIN SOD 40 MG/0.4 ML SYRINGE SC SCH (10:05)
[2022-11-22] MEDS ORDERED: DEXTROSE 10% 250 ML Bag IV PRN (11:15)
[2022-11-22] MEDS ORDERED: DEXTROSE 10% 250 ML IV ONE (11:26)
[2022-11-22] MEDS ORDERED: DEXTROSE 10% IV ONE (13:00)
[2022-11-22] MEDS ORDERED: InsuLIN REG 1unit/0.01ml Soln (100units/ml) IV ONE (13:00)
[2022-11-22] MEDS ORDERED: SODIUM ZIRCONIUM CYCL 10 GM PAK PO ONE (13:00)
[2022-11-22] MEDS ORDERED: SODIUM CHLORIDE 0.9% 2,000 ML IV ONE (15:45)
[2022-11-22] MEDS: PIPERACILLIN-TAZOB 3.375GM 100 ML IV SCH (17:12)
[2022-11-22] MEDS ORDERED: METOCLOPRAMIDE HCL 5MG/ml INJ 2ml VIAL IV ONE (17:15)
[2022-11-22] MEDS: DEXTROSE 10% 1,000 ML IV SCH (17:27)
[2022-11-22] MEDS: SODIUM BICARBONATE 50ML VIAL 150 ML in D5W 5% 1,000 ML IV SCH (17:42)
[2022-11-22] MEDS: PYRIDOstigmine BROMIDE 60 MG TAB PO SCH ×2 (17:59→22:09)
[2022-11-22 18:31] LABS: Basophils # (auto) 0.1 10 ^3/uL (0-0.2); Monocytes # (auto) 0.6 10 ^3/uL (0-1.3)
[2022-11-22 18:33] LABS: Basophils % (auto) 0.4 % (0.0-2.0); Eosinophils # (auto) 0.1 10 ^3/uL (0-0.8); Eosinophils % (auto) 0.5 % (0.0-7.0); Hematocrit 26.8 % (36.0-46.0); Hemoglobin 8.2 g/dL (12.2-16.2); Lymphocytes # (auto) 0.7 10 ^3/uL (0.4-5.4); Lymphocytes % (auto) 5.6 % (10.0-50.0); Mean Corpuscular Hemoglobin 25.2 pg (28.0-32.0); Mean Corpuscular Hgb Conc. 30.6 g/dL (32.0-36.0); Mean Corpuscular Volume 82.2 fL (80.0-100.0); Monocytes % (auto) 4.6 % (0.0-12.0); Neutrophils # (auto) 11.5 10 ^3/uL (1.6-8.6); Neutrophils % (auto) 88.9 % (37.0-80.0); Nucleated Red Blood Cells % 0.2 %; Red Blood Cells 3.26 10^6/uL (4.0-5.20); Red Cell Distribution Width 18.4 % (11.8-14.3); White Blood Cell 12.9 10^3/uL (4.4-10.8)
[2022-11-22 18:48] LABS: BUN/Creatinine Ratio 20.4; Calcium 6.8 mg/dL (8.5-10.1)
[2022-11-22 18:50] LABS: Potassium 6.2 mmol/L (3.5-5.1)
[2022-11-22] MEDS ORDERED: BUMETANIDE 2.5mg/10ml (0.25 mg/ml) INJ IV ONE (19:30)
[2022-11-22] MEDS: PROPOFOL 100 ML IV SCH (21:30)
[2022-11-23] VITALS (105 sets, daily range): BP systolic 66–175; BP diastolic 38–82
[2022-11-23] MEDS: NOREPINEPHRINE 8 MG/250ML KIT 250 ML IV SCH ×2 (00:16→05:49)
[2022-11-23] MEDS: ACCU-CHEK COMFORT CURVE STRIP VI SCH ×24 (00:16→23:11)
[2022-11-23] MEDS: DEXTROSE 10% 1,000 ML IV SCH ×3 (00:25→17:30)
[2022-11-23] MEDS: DOPamine 1600MCG/ML D5W 250 ML IV SCH ×2 (00:42→17:00)
[2022-11-23 01:16] LABS: Calcium 6.8 mg/dL (8.5-10.1)
[2022-11-23 01:19] LABS: BUN/Creatinine Ratio 20.4
[2022-11-23 01:23] LABS: Potassium 6.1 mmol/L (3.5-5.1)
[2022-11-23] MEDS: VASOPRESSIN 20 UNITS in SODIUM CHL 0.9% 99 ML IV SCH ×3 (03:00→22:11)
[2022-11-23] MEDS: PHENYLEPHRINE INJ 80 MG in SODIUM CHL 0.9% 242 ML IV SCH ×4 (03:33→20:29)
[2022-11-23 04:08] LABS: Hematocrit 28.7 % (36.0-46.0)
[2022-11-23 04:11] LABS: Hemoglobin 8.9 g/dL (12.2-16.2); Mean Corpuscular Hgb Conc. 31.2 g/dL (32.0-36.0); Mean Corpuscular Volume 80.4 fL (80.0-100.0); Red Blood Cells 3.57 10^6/uL (4.0-5.20); Red Cell Distribution Width 18.9 % (11.8-14.3); White Blood Cell 11.1 10^3/uL (4.4-10.8)
[2022-11-23 04:19] LABS: Albumin 1.6 g/dL (3.4-5.0); Anion Gap 11 (5-15); Blood Urea Nitrogen 76 mg/dL (7-18); Calcium 6.6 mg/dL (8.5-10.1); Carbon Dioxide 24 mmol/L (21-32); Chloride 104 mmol/L (98-107); Glucose 131 mg/dL (74-106); Sodium 139 mmol/L (136-145)
[2022-11-23 04:21] LABS: Alanine Aminotransferase 423 U/L (13-56); Aspartate Aminotransferase 619 U/L (15-37); BUN/Creatinine Ratio 19.6; GFR African American 15 mL/min; GFR Non-African American 12 mL/min
[2022-11-23 04:24] LABS: Alkaline Phosphatase 252 U/L (45-117); Basophils % (manual) 0 (0.0-2.0); Bilirubin, Total 0.6 mg/dL (0.2-1.0); Blast Cells 0; Myelocytes % 0; Promyelocytes % 0; Reactive Lymphocytes 0; Total Protein 4.7 g/dL (6.4-8.2)
[2022-11-23 04:28] LABS: Potassium 6.1 mmol/L (3.5-5.1)
[2022-11-23 04:29] LABS: INR 1.14 (0.9-1.15)
[2022-11-23] MEDS: SODIUM BICARBONATE 50ML VIAL 150 ML in D5W 5% 1,000 ML IV SCH ×2 (04:58→16:06)
[2022-11-23] MEDS: PIPERACILLIN-TAZOB 3.375GM 100 ML IV SCH ×2 (04:58→17:30)
[2022-11-23 04:59] LABS: Band Neutrophils % (manual) 11; Eosinophils % (manual) 2 (0-7); Lymphocytes % (manual) 6 (10.0-50.0); Metamyelocytes % 2; Monocytes % (manual) 6 (0-12)
[2022-11-23] MEDS: PYRIDOstigmine BROMIDE 60 MG TAB PO SCH ×4 (06:00→22:10)
[2022-11-23] MEDS: EPINEPHrine HCL 250 ML IV SCH (07:30)
[2022-11-23] MEDS: MIDAZOLAM DRIP 50 mg/50mL 50 ML IV SCH (11:00)
[2022-11-23] MEDS: PANTOPRAZOLE 40 MG/10 ML VIAL INJ IV SCH (11:01)
[2022-11-23] MEDS ORDERED: PHENYLEPHRINE IV 250 ML IV ONE (11:07)
[2022-11-23] MEDS ORDERED: PHENYLEPHRINE HCL 10 MG/ML VL ONE (11:09)
[2022-11-23] MEDS: NOREPINEPHRINE BITARTRATE 32 MG in SODIUM CHL 0.9% 218 ML IV SCH (11:16)
[2022-11-23 13:09] LABS: BUN/Creatinine Ratio 20.1; Calcium 6.6 mg/dL (8.5-10.1)
[2022-11-23] MEDS ORDERED: ALBUTEROL SULF 2.5 MG/0.5ML(0.5%) NEB SOLN NEB PRN (13:15)
[2022-11-23] MEDS ORDERED: IPRATROPIUM BROM 0.5 MG/2.5ML INH SOL NEB PRN (13:15)
[2022-11-23] MEDS ORDERED: SODIUM BICARBONATE 8.4 % INJ 50ML VIAL IV ONE (15:56)
[2022-11-24] VITALS (100 sets, daily range): BP systolic 88–176; BP diastolic 38–95
[2022-11-24] MEDS: ACCU-CHEK COMFORT CURVE STRIP VI SCH ×15 (00:08→23:44)
[2022-11-24] MEDS: DEXTROSE 10% 1,000 ML IV SCH ×3 (03:30→23:30)
[2022-11-24 04:18] LABS: Basophils # (auto) 0 10 ^3/uL (0-0.2); Hemoglobin 7.8 g/dL (12.2-16.2); Mean Corpuscular Volume 77.8 fL (80.0-100.0); Monocytes # (auto) 0.3 10 ^3/uL (0-1.3)
[2022-11-24 04:21] LABS: Basophils % (auto) 0.4 % (0.0-2.0); Eosinophils # (auto) 0.1 10 ^3/uL (0-0.8); Lymphocytes % (auto) 10.3 % (10.0-50.0); Mean Corpuscular Hemoglobin 25.2 pg (28.0-32.0); Mean Corpuscular Hgb Conc. 32.4 g/dL (32.0-36.0); Monocytes % (auto) 2.8 % (0.0-12.0); Neutrophils # (auto) 8.4 10 ^3/uL (1.6-8.6); Neutrophils % (auto) 85.5 % (37.0-80.0); Nucleated Red Blood Cells % 0.3 %; Red Blood Cells 3.08 10^6/uL (4.0-5.20); Red Cell Distribution Width 19.2 % (11.8-14.3); White Blood Cell 9.8 10^3/uL (4.4-10.8)
[2022-11-24] MEDS: SODIUM BICARBONATE 50ML VIAL 150 ML in D5W 5% 1,000 ML IV SCH ×2 (04:32→17:28)
[2022-11-24] MEDS: PIPERACILLIN-TAZOB 3.375GM 100 ML IV SCH ×2 (04:32→18:00)
[2022-11-24 04:34] LABS: Albumin 1.5 g/dL (3.4-5.0)
[2022-11-24 04:36] LABS: BUN/Creatinine Ratio 20.6; Total Protein 3.8 g/dL (6.4-8.2)
[2022-11-24 04:38] LABS: Bilirubin, Total 0.8 mg/dL (0.2-1.0)
[2022-11-24] MEDS: PYRIDOstigmine BROMIDE 60 MG TAB PO SCH ×4 (05:56→22:02)
[2022-11-24] MEDS: PHENYLEPHRINE INJ 80 MG in SODIUM CHL 0.9% 242 ML IV SCH ×2 (06:10→15:59)
[2022-11-24] MEDS ORDERED: DEXTROSE (50%) 50ML SYRG IV ONE (06:30)
[2022-11-24] MEDS ORDERED: InsuLIN REG 1unit/0.01ml Soln (100units/ml) IV ONE (06:30)
[2022-11-24] MEDS ORDERED: SODIUM BICARBONATE 8.4 % INJ 50ML VIAL IV ONE ×2 (06:30→06:33)
[2022-11-24] MEDS ORDERED: AMIODARONE HCL 150 MG in D5W 5% 100 ML IV ONE (06:30)
[2022-11-24] MEDS ORDERED: AMIODARONE HCL (50 MG/ ML) 3 ML VIAL IV ONE (06:33)
[2022-11-24] MEDS ORDERED: AMIODARONE 450mg/250ml AE 250 ML IV SCH (06:45)
[2022-11-24] MEDS: EPINEPHrine HCL 250 ML IV SCH (07:30)
[2022-11-24] MEDS: NOREPINEPHRINE BITARTRATE 32 MG in SODIUM CHL 0.9% 218 ML IV SCH (08:45)
[2022-11-24] MEDS: DOPamine 1600MCG/ML D5W 250 ML IV SCH (09:18)
[2022-11-24] MEDS: PANTOPRAZOLE 40 MG/10 ML VIAL INJ IV SCH (09:47)
[2022-11-24] MEDS: PROPOFOL 100 ML IV SCH (09:49)
[2022-11-24] MEDS: VASOPRESSIN 20 UNITS in SODIUM CHL 0.9% 99 ML IV SCH (09:50)
[2022-11-24] MEDS ORDERED: SODIUM ZIRCONIUM CYCL 10 GM PAK PO ONE (10:45)
[2022-11-24] MEDS: MIDAZOLAM DRIP 50 mg/50mL 50 ML IV SCH (11:00)
[2022-11-24] MEDS ORDERED: DEXTROSE (50%) 50ML SYRG IV PRN (11:15)
[2022-11-24] MEDS ORDERED: ACCU-CHEK COMFORT CURVE STRIP VI SCH (12:00)
[2022-11-24] MEDS: InsuLIN REG 1unit/0.01ml Soln (100units/ml) SC SCH ×4 (12:45→23:46)
[2022-11-24] MEDS ORDERED: BUMETANIDE 2.5mg/10ml (0.25 mg/ml) INJ IV ONE ×2 (13:00→13:30)
[2022-11-24] MEDS: AMIODARONE 450mg/250ml AE 250 ML IV SCH (13:13)
[2022-11-24] MEDS ORDERED: METOCLOPRAMIDE HCL 5MG/ml INJ 2ml VIAL IV PRN (18:15)
[2022-11-24] MEDS ORDERED: CLINIMIX PER PHARMACY 0 ML IV SCH ×2 (18:15→19:00)
[2022-11-24 19:20] LABS: Calcium 6.6 mg/dL (8.5-10.1); Potassium 4.7 mmol/L (3.5-5.1)
[2022-11-24] MEDS ORDERED: DEXTROSE (50%) 50ML SYRG IV SCH (20:00)
[2022-11-24] MEDS ORDERED: AMINO ACID INFUSION IN D10W 1,000 ML IV NR (20:00)
[2022-11-24] MEDS: METOCLOPRAMIDE HCL 5MG/ml INJ 2ml VIAL IV SCH (22:01)
[2022-11-25] VITALS (69 sets, daily range): BP systolic 75–157; BP diastolic 32–75
[2022-11-25] MEDS: InsuLIN REG 1unit/0.01ml Soln (100units/ml) SC SCH ×4 (04:00→12:12)
[2022-11-25] MEDS: ACCU-CHEK COMFORT CURVE STRIP VI SCH ×4 (04:00→12:21)
[2022-11-25] MEDS: AMIODARONE 450mg/250ml AE 250 ML IV SCH (04:43)
[2022-11-25] MEDS: PHENYLEPHRINE INJ 80 MG in SODIUM CHL 0.9% 242 ML IV SCH (04:44)
[2022-11-25 04:45] LABS: Albumin 1.4 g/dL (3.4-5.0); Calcium 6.1 mg/dL (8.5-10.1); Magnesium 1.6 mg/dL (1.6-2.6); Potassium 4.1 mmol/L (3.5-5.1)
[2022-11-25 04:50] LABS: BUN/Creatinine Ratio 21.4; Bilirubin, Total 0.7 mg/dL (0.2-1.0); Phosphorus 4.4 mg/dL (2.5-4.90); Total Protein 3.5 g/dL (6.4-8.2)
[2022-11-25] MEDS: SODIUM BICARBONATE 50ML VIAL 150 ML in D5W 5% 1,000 ML IV SCH (05:13)
[2022-11-25] MEDS: PIPERACILLIN-TAZOB 3.375GM 100 ML IV SCH (05:13)
[2022-11-25 05:17] LABS: Hematocrit 20.5 % (36.0-46.0); Mean Corpuscular Hemoglobin 26.2 pg (28.0-32.0)
[2022-11-25 05:19] LABS: Mean Corpuscular Hgb Conc. 34.2 g/dL (32.0-36.0); Mean Corpuscular Volume 76.8 fL (80.0-100.0); Red Blood Cells 2.67 10^6/uL (4.0-5.20); Red Cell Distribution Width 18.6 % (11.8-14.3); White Blood Cell 10.4 10^3/uL (4.4-10.8)
[2022-11-25 05:56] LABS: Basophils % (manual) 0 (0.0-2.0); Blast Cells 0; Metamyelocytes % 0; Myelocytes % 0; Promyelocytes % 0; Reactive Lymphocytes 0
[2022-11-25] MEDS: METOCLOPRAMIDE HCL 5MG/ml INJ 2ml VIAL IV SCH (06:04)
[2022-11-25] MEDS: PYRIDOstigmine BROMIDE 60 MG TAB PO SCH ×2 (06:04→12:12)
[2022-11-25 09:45] LABS: Hepatitis B Surface Antibody Negative (Negative)
[2022-11-25 10:04] LABS: Band Neutrophils % (manual) 74; Eosinophils % (manual) 1 (0-7); Lymphocytes % (manual) 11 (10.0-50.0); Monocytes % (manual) 5 (0-12)
[2022-11-25 10:18] LABS: Hepatitis A Total Antibody Negative (Negative)
[2022-11-25 13:43] LABS: Hepatitis A Ab IgM Negative
[2022-11-25 13:45] LABS: Hepatitis C Antibody Negative (Negative)
[2022-11-25 13:46] LABS: Hepatitis B Core IgM Negative
[2022-11-25] MEDS ORDERED: MORPHINE SULFATE 4 MG/ML SYR/VIAL IV PRN (15:15)
[2022-11-25] MEDS ORDERED: LORazepam 2MG/ML-1ML VIAL IV PRN (15:15)
[2022-11-25] MEDS ORDERED: ONDANSETRON HCL 4 MG/2 ML VIAL IV PRN (15:15)
[2022-11-25] MEDS ORDERED: MORPHINE SULFATE 4 MG/ML SYR/VIAL ONE (15:23)
[2022-11-25] MEDS ORDERED: MEROPENEM 500MG IVPB 50 ML IV SCH (17:00)
[2022-11-25] MEDS ORDERED: AMINO ACID INFUSION IN D10W 1,000 ML IV NR (20:00)
== END 2022-11-25 21:44 | DRG 207 ==
LOC: EDSEX 06:21 → EDBD 06:21 → ER 06:21 → TELE 14:52 → ICU WEST 16:42
PROVIDERS: ADMIT Internal Medicine; ATTEND Internal Medicine
PROC: 0BH17EZ Insertion of Endotracheal Airway into Trachea, Via Natural or Artificial Opening (ICD-10-PCS; principal; 2022-11-20)
PROC: 5A1955Z Respiratory Ventilation, Greater than 96 Consecutive Hours (ICD-10-PCS; 2022-11-20)
PROC: 5A12012 Performance of Cardiac Output, Single, Manual (ICD-10-PCS; 2022-11-20)
DX: J96.01 Acute respiratory failure with hypoxia (principal); E11.11 Type 2 diabetes mellitus with ketoacidosis with coma; I21.4 Non-ST elevation (NSTEMI) myocardial infarction; G93.41 Metabolic encephalopathy; J15.6 Pneumonia due to other Gram-negative bacteria; J69.0 Pneumonitis due to inhalation of food and vomit; N17.0 Acute kidney failure with tubular necrosis; K72.00 Acute and subacute hepatic failure without coma; E87.4 Mixed disorder of acid-base balance; G93.1 Anoxic brain damage, not elsewhere classified; K56.0 Paralytic ileus; Z99.11 Dependence on respirator [ventilator] status; J44.0 Chronic obstructive pulmonary disease with (acute) lower respiratory infection; I46.9 Cardiac arrest, cause unspecified; Z66 Do not resuscitate; Z20.822 Contact with and (suspected) exposure to COVID-19; D64.9 Anemia, unspecified; E11.22 Type 2 diabetes mellitus with diabetic chronic kidney disease; E11.649 Type 2 diabetes mellitus with hypoglycemia without coma; E11.65 Type 2 diabetes mellitus with hyperglycemia; I12.9 Hypertensive chronic kidney disease with stage 1 through stage 4 chronic kidney disease, or unspecified chronic kidney disease; N18.9 Chronic kidney disease, unspecified; I49.9 Cardiac arrhythmia, unspecified; E78.5 Hyperlipidemia, unspecified; G70.00 Myasthenia gravis without (acute) exacerbation; E89.0 Postprocedural hypothyroidism; E87.5 Hyperkalemia; K31.89 Other diseases of stomach and duodenum; Z68.29 Body mass index [BMI] 29.0-29.9, adult; Z88.8 Allergy status to other drugs, medicaments and biological substances; Z95.0 Presence of cardiac pacemaker; Z85.3 Personal history of malignant neoplasm of breast; Z83.3 Family history of diabetes mellitus; Z80.3 Family history of malignant neoplasm of breast; Z82.49 Family history of ischemic heart disease and other diseases of the circulatory system; Z79.4 Long term (current) use of insulin
CPT/HCPCS: 31500; 36415; 36556; 36600; 70450; 71045; 71260; 74177; 76775; 80048; 80053; 80061; 80074; 80307; 81001; 82805; 82962; 83036; 83605; 83735; 83880; 84100; 84132; 84443; 84478; 84484; 85007; 85025; 85027; 85610; 86704; 86706; 86708; 86803; 86850; 86900; 86901; 87040; 87070; 87077; 87081; 87186; 87205; 87340; 87426; 93005; 93306; 94002; 94003; 95819; 96365; 96375; 99291; C9113; G0378; J0171; J0696; J1815; J1956; J2185; J2250; J2543; J2704; J3480; J7060; J7517